=== PATIENT | female | born 1995 | race Caucasian/White ===

== ENCOUNTER 2020-08-21 20:34 | Emergency (ER) | payer OTHER ==
--- NOTE | 2020-08-21 21:03 | ED Physician Documentation ---
PD HPI ABD PAIN - Stated complaint Stated Complaint: ADB PX - Chief complaint Chief Complaint: Abd Pain - History obtained from History obtained from: Patient - History of Present Illness Timing - onset: Enter time (13:00), Today Timing - details: Abrupt onset, Intermittant, Waxing and waning Pain level max: 8 Pain level now: 2 Quality: Pain Location: LUQ Radiation: Left flank, Other (suprapubic) Improved by: Other (no ameliorating factors) Worsened by: Other (no exacerbating factors) Associated symptoms: Nausea. No: Fever, Vomiting, Diarrhea, Constipation Similar symptoms before: Has not had sx before Review of Systems Constitutional: reports: Reviewed and negative Cardiac: reports: Reviewed and negative Respiratory: reports: Reviewed and negative GI: reports: Nausea. denies: Abdominal Pain, Vomiting : denies: Dysuria, Frequency, Hematuria, Now EGA PD PAST MEDICAL HISTORY - Past Medical History Past Medical History: No Cardiovascular: None Respiratory: None Neuro: None Endocrine/Autoimmune: None GI: None ADMINISTRATIVE OFFICE MANAGER: None : None HEENT: None Psych: None Musculoskeletal: None Derm: None - Past Surgical History Past Surgical History: Yes General: Hiatal hernia repair - Present Medications Home Medications: Ambulatory Orders Medication Instructions Recorded Confirmed HYDROcod/ACETAM 5/325 [[place] 5/325] 1 - 2 ea PO Q6H PRN #15 tablet 08/22/20 Ondansetron Odt [Zofran] 4 mg TL Q6H PRN #10 tablet 08/22/20 Tamsulosin [Flomax] 0.4 mg PO DAILY #7 capsule 08/22/20 - Allergies Allergies/Adverse Reactions: Allergies Allergy/AdvReac Type Severity Reaction Status Date / Time No Known Drug Allergies Allergy Verified 08/21/20 20:41 - Social History Does the pt smoke?: No Smoking Status: Never smoker PD ED PE NORMAL - Vitals Vital signs reviewed: Yes - General General: Alert and oriented X 3, No acute distress, Well developed/nourished - Cardiac Cardiac: RRR, No murmur - Respiratory Respiratory: Clear bilaterally - Abdomen Abdomen: Normal bowel sounds, Soft, Non tender, Non distended - Back Back: No CVA TTP - Derm Derm: No rash Results - Vitals Vitals: Oxygen O2 Source Room air - Labs Labs: Laboratory Tests 08/21/20 08/21/20 20:20 20:20 Urine Color YELLOW Urine Clarity CLEAR Urine pH 6.5 Ur Specific [place] <1.005 Urine Protein NEGATIVE Urine Glucose (UA) NEGATIVE Urine Ketones NEGATIVE Urine Occult Blood MODERATE H Urine Nitrite NEGATIVE Urine Bilirubin NEGATIVE Urine Urobilinogen 0.2 (NORMAL) Ur Leukocyte Esterase NEGATIVE Urine RBC 0-5 Urine WBC 0-3 Ur Squamous Epith Cells RARE Squamous Urine Bacteria Rare Ur Microscopic Review INDICATED Urine Culture Comments NOT INDICATED Urine HCG, Qual NEGATIVE - Rads (name of study) CT A/P Radiology: Prelim report reviewed, See rad report PD MEDICAL DECISION MAKING - ED course Complexity details: reviewed results, re-evaluated patient, considered differential, d/w patient ED course: patient presents with left flank pain that radiates to the suprapubic region, symptoms since 1 PM today without ameliorating or exacerbating factors. She has hematuria, microscopic, on UA and CT abdomen/pelvis demonstrates 3.5 mm left UVJ calculus as well as multiple bilateral intra- renal stones. Declines pain medication during ED stay, was in NAD. Departure - Departure Disposition: Home, Self Care Clinical Impression: Renal colic on left side Condition: Good Instructions: ED Stone Renal W Colic Follow-Up: HANNAH Ruiz [Provider Group] Prescriptions: Tamsulosin [Flomax] 0.4 mg PO DAILY #7 capsule HYDROcod/ACETAM 5/325 [[place] 5/325] 1 - 2 ea PO Q6H PRN #15 tablet PRN Reason: Pain Ondansetron Odt [Zofran] 4 mg TL Q6H PRN #10 tablet PRN Reason: Nausea / Vomiting Discharge Date/Time: 08/22/20 01:09
[2020-08-21 22:50] LABS: HCG UR QUAL NEGATIVE
[2020-08-21 22:51] LABS: BILIRUBIN,URINE NEGATIVE (NEGATIVE); CLARITY,URINE CLEAR (CLEAR); GLUCOSE, URINE (UA) NEGATIVE (NEGATIVE); KETONES,URINE (UA) NEGATIVE (NEGATIVE); LEUKOCYTE ESTERASE, URINE NEGATIVE (NEGATIVE); NITRITE,URINE NEGATIVE (NEGATIVE); OCCULT BLOOD,URINE MODERATE (NEGATIVE); PH,URINE 6.5 PH (5.0-7.5); PROTEIN,URINE NEGATIVE (NEGATIVE); UROBILINOGEN,URINE 0.2 (NORMAL) E.U./dL (NORMAL)
[2020-08-21 22:54] LABS: BACTERIA,URINE Rare /HPF (None Seen); RBC,URINE 0-5 /HPF (0-5); SQUAMOUS EPITHELIAL CELL,UR RARE Squamous (<= Few); WBC,URINE 0-3 /HPF (0-5)
[2020-08-22] MEDS ORDERED: TAMSULOSIN 0.4 MG CAPSULE PO STA (00:45)
[2020-08-22] MEDS ORDERED: HYDROcod/ACET 5/325 Prepack 4 PO STA (00:45)
[2020-08-22 00:54] VITALS: BP 106/71
--- NOTE | 2020-08-22 08:58 | CT Report ---
PROCEDURE: Abdomen/Pelvis WO INDICATIONS: left flank pain, hematuria TECHNIQUE: Noncontrast 5 mm thick sections acquired from the diaphragms to the symphysis. 5 mm coronal and sagi ttal reformats were then performed. For radiation dose reduction, the following was used: automated exposure control, adjustment of mA and/or kV according to patient size. COMPARISON: None. FINDINGS: Image quality: Excellent. ABDOMEN: Lung bases: Lung bases are clear. Heart size is normal. Solid organs: Liver and spleen are normal in size. Gallbladder is unremarkable. Pancreas is normal in contours. No adrenal nodules. There are bilateral nephroliths measuring up to 3 mm in each kidn ey. Right kidney is normal in size without hydronephrosis. There is mild left hydronephrosis and mini mal left hydroureter secondary to a 3.5 mm distal left ureteral stone visualized at the left ureterov esicular junction. No perinephric stranding. Peritoneum and bowel: Unenhanced bowel loops demonstrate normal wall thickness and caliber. No free fluid or air. Normal appendix. Nodes and vessels: No retroperitoneal or mesenteric adenopathy by size criteria. Aorta and inferior vena cava are normal in caliber. Miscellaneous: No ventral hernias. PELVIS: Genitourinary: Bladder wall thickness is normal. Miscellaneous: No inguinal hernias or adenopathy. Bones: No suspicious bony lesions. No acute vertebral body compression fractures. IMPRESSION: 1. Bilateral nephrolithiasis with an obstructing 3.5 mm distal left ureteral stone visualized at the left ureterovesicular junction. Mild left hydroureteronephrosis. 2. Normal appendix. No significant discrepancy with initial interpretation by overnight radiologist. Reviewed by: Chip Noriega MD on 08/22/2020 8:56 AM PST Approved by: Chpi Noriega MD on 08/22/2020 8:56 AM PST Station ID: [id number]
== END 2020-08-22 01:09 | disposition home or self-care (01) ==
LOC: ED 20:34
DX: N13.2 Hydronephrosis with renal and ureteral calculous obstruction (principal); R31.29 Other microscopic hematuria
CPT/HCPCS: 74176; 81001; 81025; 99284; A9270; 81003; 87086